=== PATIENT | female | born 1970 | race African-American/Black ===

== ENCOUNTER 2017-06-26 07:53 | Emergency (ER) | payer BC ==
[~2017-06-26] VITALS: Ht 165.1 cm; Wt 122.5 kg
[~2017-06-26 07:53] MED LIST: AMBIEN10 M1 PO; AMOXICILLIN500 MG PO; AMOXICILLIN875 MG PO; ANAPROX DS550 MG PO; ATIVAN0.5 MG PO; BACTRIM DS 8001 TA1 PO; CATAFLAM50 MG PO; CLARITIN-D 12 H1 TAB PO; CLEOCIN HCL150 MG PO; CLINDAMYCIN HC300 MG PO; DAILY VALUE1 EACH PO; DAYPRO600 M1 PO; FLEXERIL10 MG PO; HYDROCODONE BIT1 T11 PO; LEVOFLOXACIN500 MG PO; LOMOTIL 0.025 M1 TA1 PO; MOTRIN800 MG PO; NAPROSYN500 MG PO; NASONEX0.05 MG/AC NAS; NUCYNTA50 MG PO; ROBAXIN750 MG PO; TRAMADOL HCL50 MG PO; TRIMOX500 MG PO; ULTRAM50 MG PO; VICODIN 500 MG-1 TAB PO; VICODIN ES 7501 TAB PO; VISTARIL25 M2 PO; ZANTAC150 MG PO; ZYRTEC10 MG PO
[2017-06-26 07:59] VITALS: BP 141/96
[2017-06-26 08:14] LABS: BILIRUBIN NEGATIVE (NEGATIVE); BLOOD TRACE-INTACT (NEGATIVE); CLARITY CLEAR (CLEAR); COLOR YELLOW (YELLOW); GLUCOSE NEGATIVE (NEGATIVE); KETONE NEGATIVE (NEGATIVE); LEUKO ESTERASE NEGATIVE (NEGATIVE); NITRITE NEGATIVE (NEGATIVE); PROTEIN NEGATIVE (NEGATIVE); UROBILINOGEN 0.2 E.U./dl (0.2-1.0)
[2017-06-26 08:41] LABS: BACTERIA TRACE; URINE REFLEX COMMENT NO (NO); WBC 0-2 wbc/hpf (0-5)
[2017-06-26 09:30] LABS: BASO % 0.4 % (0.0-1.0); EOS # 0.4 10*3/uL (0.0-0.4); EOS % 4.1 % (1.0-4.0); HEMATOCRIT 37.6 % (37.0-47.0); HEMOGLOBIN 12.5 g/dl (12.0-16.0); IG # 0.1 10*3/uL (0.0-0.1); LYMPH # 2.8 10*3/uL (1.3-4.4); LYMPH % 27.5 % (27.0-41.0); MEAN CELL VOLUME 89.7 fl (81.0-99.0); MEAN CORPUSCULAR HGB 29.8 pg (27.0-31.0); MEAN CORPUSCULAR HGB CONC 33.2 g/dl (33.0-37.0); MEAN PLATELET VOLUME 9.8 fl (9.6-12.3); MONO # 0.6 10*3/uL (0.1-1.0); MONO % 6.3 % (3.0-9.0); NEUT # 6.3 10*3/uL (2.3-7.9); NEUT % 61.2 % (47.0-73.0); PLATELET COUNT AUTOMATED 344 10*3/uL (130-400); RED BLOOD COUNT 4.19 10*6/uL (4.10-5.10); RED CELL DISTRI WIDTH 14.2 % (0-14.5); WHITE BLOOD COUNT 10.2 10*3/uL (4.8-10.8)
[2017-06-26 09:45] LABS: ALBUMIN 2.9 gm/dl (3.1-4.5); ALKALINE PHOSPHATASE 88 U/L (45-117); BILIRUBIN, TOTAL 0.2 mg/dl (0.2-1.0); BUN 6 mg/dl (7-24); C-REACTIVE PROTEIN 4.17 MG/DL (0-0.3); CARBON DIOXIDE 24 mmol/L (21-32); CHLORIDE 107 mmol/L (98-107); EST GLOM FILT AFRICAN AMERICAN > 60 ml/min; GLUCOSE 113 mg/dL (65-99); MAGNESIUM 1.9 mg/dL (1.5-2.1); POTASSIUM 3.5 mmol/L (3.5-5.1); SGOT/AST 10 IU/L (3-35); SGPT/ALT 15 U/L (12-78); SODIUM 137 mmol/L (136-145); TOTAL PROTEIN 7.7 gm/dL (6.4-8.2)
[2017-06-26] MEDS ORDERED: HYDROCODONE BIT1 T11 PO (11:38)
[2017-06-26] MEDS ORDERED: Motrin,Rufen800 MG PO (11:38)
[2017-06-26] MEDS ORDERED: FLAGYL500 MG PO (11:38)
[2017-06-26] MEDS ORDERED: CIPRO500 MG PO (11:38)
== END 2017-06-26 11:54 | disposition home or self-care (01) ==
LOC: ED 07:53
PROVIDERS: Emergency Medicine
DX: K57.92 Diverticulitis of intestine, part unspecified, without perforation or abscess without bleeding (principal); F17.200 Nicotine dependence, unspecified, uncomplicated

== ENCOUNTER 2018-06-21 15:23 | Emergency (ER) | payer BC ==
[~2018-06-21] VITALS: Ht 165.1 cm; Wt 136.1 kg
[~2018-06-21 15:23] MED LIST changes: +CIPRO500 MG PO; +FLAGYL500 MG PO; +Motrin,Rufen800 MG PO
[2018-06-21 15:24] VITALS: BP 166/97
[2018-06-21] MEDS ORDERED: CLINDAMYCIN150 MG PO (15:56)
[2018-06-21] MEDS ORDERED: ZOFRAN4 MG PO (15:56)
== END 2018-06-21 16:10 | disposition home or self-care (01) ==
LOC: ED 15:23
DX: J02.9 Acute pharyngitis, unspecified (principal); R03.0 Elevated blood-pressure reading, without diagnosis of hypertension; F17.200 Nicotine dependence, unspecified, uncomplicated; Z79.899 Other long term (current) drug therapy; Z98.51 Tubal ligation status

== ENCOUNTER 2018-06-24 16:04 | Emergency (ER) | payer BC ==
[~2018-06-24] VITALS: Ht 165.1 cm; Wt 136.1 kg
[~2018-06-24 16:04] MED LIST changes: +CLINDAMYCIN150 MG PO; +ZOFRAN4 MG PO
[2018-06-24 16:05] VITALS: BP 156/97
[2018-06-24 16:39] LABS: BASO # 0.1 10*3/uL (0.0-0.1); BASO % 0.4 % (0.0-1.0); EOS # 0.7 10*3/uL (0.0-0.4); EOS % 5.5 % (1.0-4.0); HEMATOCRIT 39.7 % (37.0-47.0); LYMPH # 3.1 10*3/uL (1.3-4.4); LYMPH % 23.3 % (27.0-41.0); MEAN CELL VOLUME 103.4 fl (81.0-99.0); MEAN CORPUSCULAR HGB 33.9 pg (27.0-31.0); MEAN CORPUSCULAR HGB CONC 32.7 g/dl (33.0-37.0); MEAN PLATELET VOLUME 9.5 fl (9.6-12.3); MONO # 0.9 10*3/uL (0.1-1.0); MONO % 6.5 % (3.0-9.0); NEUT # 8.4 10*3/uL (2.3-7.9); NEUT % 63.8 % (47.0-73.0); PLATELET COUNT AUTOMATED 360 10*3/uL (130-400); RED BLOOD COUNT 3.84 10*6/uL (4.10-5.10); RED CELL DISTRI WIDTH 17.3 % (0-14.5); WHITE BLOOD COUNT 13.1 10*3/uL (4.8-10.8)
[2018-06-24 16:53] LABS: ALBUMIN 3.2 gm/dl (3.1-4.5); ALKALINE PHOSPHATASE 103 U/L (45-117); BUN 3 mg/dl (7-24); CHLORIDE 103 mmol/L (98-107); CREATININE 0.84 mg/dL (0.55-1.02); POTASSIUM 3.9 mmol/L (3.5-5.1); SGOT/AST 8 IU/L (3-35); SGPT/ALT 14 U/L (12-78); SODIUM 137 mmol/L (136-145); TOTAL PROTEIN 8.4 gm/dL (6.4-8.2)
[2018-06-24] MEDS ORDERED: DELTASONE20 M1 PO (19:41)
== END 2018-06-24 19:37 | disposition home or self-care (01) ==
LOC: ED 16:04
PROVIDERS: Physician Assistant
DX: J02.9 Acute pharyngitis, unspecified (principal); Z79.899 Other long term (current) drug therapy

== ENCOUNTER → 2020-07-20 | Outpatient (CLI) | payer BC ==
[~2020-07-20] MED LIST changes: +DELTASONE20 M1 PO
[2020-07-20 16:26] LABS: BASO % 0.4 % (0.0-1.0); EOS # 0.3 10*3/uL (0.0-0.4); LYMPH % 43.6 % (27.0-41.0); MEAN CELL VOLUME 90.7 fl (81.0-99.0); MEAN CORPUSCULAR HGB 29.4 pg (27.0-31.0); MEAN CORPUSCULAR HGB CONC 32.4 g/dl (33.0-37.0); MONO # 0.6 10*3/uL (0.1-1.0); MONO % 8.6 % (3.0-9.0); NEUT % 43.1 % (47.0-73.0); PLATELET COUNT AUTOMATED 413 10*3/uL (130-400); RED BLOOD COUNT 4.52 10*6/uL (4.10-5.10); RED CELL DISTRI WIDTH 13.4 % (0-14.5)
== END | disposition home or self-care (01) ==
LOC: US 15:00 → LAB 15:15
PROVIDERS: ATTEND Nurse Practitioner Women's Health
DX: D25.2 Subserosal leiomyoma of uterus (principal); N93.9 Abnormal uterine and vaginal bleeding, unspecified

== ENCOUNTER → 2020-10-22 | Outpatient (CLI) | payer BC | END | disposition home or self-care (01) | LOC: COVID19 13:37 | PROVIDERS: ATTEND Hospitalist | DX: U07.1 COVID-19 (principal) ==

== ENCOUNTER 2021-04-01 05:20 | Emergency (ER) | payer BC ==
[~2021-04-01] VITALS: Ht 165.1 cm; Wt 145.1 kg
[2021-04-01 05:29] VITALS: BP 158/84
[2021-04-01 06:19] LABS: BASO # 0.1 10*3/uL (0.0-0.1); BASO % 0.7 % (0.0-1.0); EOS # 0.4 10*3/uL (0.0-0.4); EOS % 5.2 % (1.0-4.0); HEMATOCRIT 37.5 % (37.0-47.0); LYMPH # 3.1 10*3/uL (1.3-4.4); LYMPH % 46.4 % (27.0-41.0); MEAN CORPUSCULAR HGB 29.9 pg (27.0-31.0); MEAN CORPUSCULAR HGB CONC 32.8 g/dl (33.0-37.0); MEAN PLATELET VOLUME 9.7 fl (9.6-12.3); MONO # 0.7 10*3/uL (0.1-1.0); MONO % 10.1 % (3.0-9.0); NEUT # 2.5 10*3/uL (2.3-7.9); NEUT % 37.3 % (47.0-73.0); PLATELET COUNT AUTOMATED 375 10*3/uL (130-400); RED BLOOD COUNT 4.12 10*6/uL (4.10-5.10); RED CELL DISTRI WIDTH 14.5 % (0-14.5); WHITE BLOOD COUNT 6.7 10*3/uL (4.8-10.8)
[2021-04-01 06:23] LABS: BUN 8 mg/dl (7-24); CHLORIDE 109 mmol/L (98-107); CREATININE 0.78 mg/dL (0.55-1.02); POTASSIUM 3.8 mmol/L (3.5-5.1); SODIUM 139 mmol/L (136-145); URIC ACID 4.5 mg/dL (2.6-6.0)
[2021-04-01] MEDS ORDERED: MEDROL DOSEPAK4 MG PO (07:02)
== END 2021-04-01 07:10 | disposition home or self-care (01) ==
LOC: ED 05:20
PROVIDERS: Emergency Medicine
DX: M76.62 Achilles tendinitis, left leg (principal); F17.200 Nicotine dependence, unspecified, uncomplicated; Z79.899 Other long term (current) drug therapy; Z98.51 Tubal ligation status

== ENCOUNTER → 2023-08-06 | Outpatient (CLI) | payer OTHER ==
[~2023-08-06] MED LIST changes: +MEDROL DOSEPAK4 MG PO
[2023-08-06 07:40] LABS: HEMATOCRIT 39.2 % (37.0-47.0); MEAN CELL VOLUME 92.7 fl (81.0-99.0); MEAN CORPUSCULAR HGB 29.8 pg (27.0-31.0); MEAN CORPUSCULAR HGB CONC 32.1 g/dl (33.0-37.0); MEAN PLATELET VOLUME 9.3 fl (9.6-12.3); RED BLOOD COUNT 4.23 10*6/uL (4.10-5.10); RED CELL DISTRI WIDTH 14.2 % (0-14.5); WHITE BLOOD COUNT 8.5 10*3/uL (4.8-10.8)
[2023-08-06 08:10] LABS: ALKALINE PHOSPHATASE 84 U/L (46-116); BUN 7 mg/dl (9-23); CHLORIDE 105 mmol/L (98-107); CHOLESTEROL 203 mg/dL (<200); LDL CHOLESTEROL 125 mg/dL (9-159); POTASSIUM 3.9 mmol/L (3.4-5.1); SGPT/ALT 11 U/L (10-49); TOTAL PROTEIN 7.5 gm/dL (6.0-8.0); TRIGLYCERIDES 151 mg/dl (<150)
[2023-08-06 08:32] LABS: VITAMIN D, 25-HYDROXY 32.9 ng/mL (30-100)
== END | disposition home or self-care (01) ==
LOC: LAB 07:21
PROVIDERS: ATTEND Family Medicine
DX: E78.00 Pure hypercholesterolemia, unspecified (principal); Z13.220 Encounter for screening for lipoid disorders; G60.9 Hereditary and idiopathic neuropathy, unspecified; M79.606 Pain in leg, unspecified; R53.83 Other fatigue; R06.02 Shortness of breath; E55.9 Vitamin D deficiency, unspecified; F17.200 Nicotine dependence, unspecified, uncomplicated; Z72.89 Other problems related to lifestyle

== ENCOUNTER → 2024-04-18 | Outpatient (CLI) | payer OTHER ==
[2024-04-18 09:32] LABS: HEMATOCRIT 40.2 % (37.0-47.0); MEAN CELL VOLUME 99.8 fl (81.0-99.0); MEAN CORPUSCULAR HGB 32.5 pg (27.0-31.0); MEAN CORPUSCULAR HGB CONC 32.6 g/dl (33.0-37.0); MEAN PLATELET VOLUME 9.4 fl (9.6-12.3); RED BLOOD COUNT 4.03 10*6/uL (4.10-5.10); RED CELL DISTRI WIDTH 16.7 % (0-14.5); WHITE BLOOD COUNT 6.2 10*3/uL (4.8-10.8)
[2024-04-18 09:53] LABS: ALKALINE PHOSPHATASE 89 U/L (46-116); CHLORIDE 108 mmol/L (98-107); CHOLESTEROL 195 mg/dL (<200); LDL CHOLESTEROL 125 mg/dL (9-159); POTASSIUM 4.1 mmol/L (3.4-5.1); SGPT/ALT 8 U/L (5-49); TOTAL PROTEIN 7.6 gm/dL (6.0-8.0); TRIGLYCERIDES 147 mg/dl (<150)
[2024-04-18 10:23] LABS: BUN < 5 mg/dl (9-23)
== END | disposition home or self-care (01) ==
LOC: LAB 09:20
PROVIDERS: ATTEND Family Medicine
DX: E74.9 Disorder of carbohydrate metabolism, unspecified (principal); E78.00 Pure hypercholesterolemia, unspecified; G62.9 Polyneuropathy, unspecified

== ENCOUNTER → 2024-08-19 | Outpatient (CLI) | payer OTHER ==
[~2024-08-19] MED LIST changes: +IOHEXOL 300 MG/ML 100 ML VIAL IV ONE; +IOHEXOL 300 MG/ML 100 ML VIAL ONE
== END | disposition home or self-care (01) ==
LOC: CT 14:07
PROVIDERS: ATTEND Family Medicine
DX: R05.3 Chronic cough (principal); Z87.891 Personal history of nicotine dependence